=== PATIENT | male | born 1945 | race Caucasian/White ===

== ENCOUNTER 2023-08-02 21:04 | Emergency (ER) | payer MEDICARE ==
[~2023-08-02] VITALS: Ht 188 cm; Wt 114.5 kg
[2023-08-02 22:56] VITALS: BP 129/77; PULSE 63; RESP 17; TEMP 98.3
== END 2023-08-02 23:00 | disposition home or self-care (01) ==
LOC: EMS 21:04
DX: R04.0 Epistaxis (principal); J44.9 Chronic obstructive pulmonary disease, unspecified; E11.9 Type 2 diabetes mellitus without complications
CPT/HCPCS: 99283; Z7502